=== PATIENT | male | born 1975 | race Asian ===

== ENCOUNTER 2017-10-31 13:27 | Day surgery (SDC) | payer OTHER ==
[2017-10-24 10:59] VITALS: BMI 33.0
[2017-10-31] MEDS ORDERED: ONDANSETRON 4 MG/2 ML VIAL ONE (13:31)
[2017-10-31] MEDS ORDERED: ceFAZolin SODIUM 1 GM VIAL ONE (13:31)
[2017-10-31] MEDS ORDERED: KETOROLAC TROMETHAMINE 30 MG/1 ML VIAL ONE (13:31)
[2017-10-31] MEDS ORDERED: LIDOCAINE HCL/PF 2% SDV 5ML VIAL ONE (13:31)
[2017-10-31] MEDS ORDERED: MIDAZOLAM HCL 2 MG/2 ML SINGLE DOSE VIAL ONE (13:32)
[2017-10-31] MEDS ORDERED: ROPIVACAINE HCL 0.5% 30ML VIAL ONE (13:36)
[2017-10-31] MEDS ORDERED: LACTATED RINGERS SOLUTION 1,000 ML IV SCH (14:15)
[2017-10-31] MEDS ORDERED: ONDANSETRON 4 MG/2 ML VIAL IVPUSH PRN (14:15)
[2017-10-31] MEDS ORDERED: oxyCODONE HCL 5 MG TABLET PO PRN (14:15)
[2017-10-31] MEDS ORDERED: PROPOFOL 20 ML ONE (14:18)
[2017-10-31] MEDS ORDERED: ePHEDrine SULFATE 50 MG/1 ML AMPULE ONE (15:16)
[2017-10-31] MEDS ORDERED: oxyCODONE HCL 5 MG TABLET ONE (16:19)
[2017-10-31 16:24] VITALS: BP 112/71; PULSE 74
[2017-10-31 16:49] VITALS: TEMP 98
--- NOTE | 2017-10-31 18:50 | OP ---
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 OPERATIVE PROCEDURE: 1. Right wrist operative arthroscopy with triangular fibrocartilage complex debridement. 2. Right wrist distal ulnar wafer resection. SURGEON: Jay Cao M.D. SEAM HAMMERER: Sheng Yusuf ANESTHESIA: General anesthesia. COMPLICATIONS: None. ESTIMATED BLOOD LOSS: Minimal. INDICATION FOR PROCEDURE: The patient is a 42-year-old male with the above findings, indicated for operative treatment. Risks, benefits, and alternatives were discussed with patient at length, and informed consent was obtained. DESCRIPTION OF PROCEDURE: After proper identification of the patient and correct operative site, patient was brought to the operating room and placed supine on the operating room table, all bony prominences well padded. General anesthesia was provided. Right upper extremity was prepped and draped in the usual sterile fashion. A well padded tourniquet was placed with a sterile prep. Esmarch bandage to exsanguinate the extremity. Tourniquet was inflated to 250 mmHg. Three, four, and six portals were made both with skin incisions only and blunt dissection down to the joint capsule. 2.7 mm gravity inflow arthroscope was used. Radial side of the wrist was without significant damage, although very mild chondromalacia was seen in the distal radius and proximal aspect of the scaphoid. Scapholunate ligament was intact. ligament was frayed, as was the base of the triquetrum and lunate. Complex full thickness tear of the TFCC was found, and this was debrided with mechanical shaver. The distal ulna was poking through, and the distal 3 mm of bone were taken off to perform a distal ulnar wafer resection. This was done with an osteoscopic bur. Soft tissue was debrided with arthroscopic shaver, and wounds were repaired with 5-0 nylon suture. Sterile dressings were applied. The patient was reversed from anesthesia and brought to the recovery room in stable condition. Christopher Anderson, the assistant curator, was integral throughout the procedure. Procedure could not have been performed without a skilled operative assistant curator. JAY CAO M.D. [id number]
== END 2017-10-31 17:00 | disposition home or self-care (01) ==
LOC: FASU 13:27
PROVIDERS: ATTEND Orthopaedic Surgery Hand Surgery
PROC: 0RQN4ZZ Repair Right Wrist Joint, Percutaneous Endoscopic Approach (ICD-10-PCS; 2017-10-31)
PROC: 0MB54ZZ Excision of Right Wrist Bursa and Ligament, Percutaneous Endoscopic Approach (ICD-10-PCS; principal; 2017-10-31 14:47)
DX: S63.591A Other specified sprain of right wrist, initial encounter (principal); X58.XXXA Exposure to other specified factors, initial encounter; Y93.89 Activity, other specified; Y92.89 Other specified places as the place of occurrence of the external cause
CPT/HCPCS: 94760